=== PATIENT | male | born 1970 | race Caucasian/White ===

== ENCOUNTER 2017-05-27 09:05 | Day surgery (SDC) | payer OTHER ==
[~2017-05-27] VITALS: Ht 180.3 cm; Wt 73.8 kg
[2017-05-27] MEDS ORDERED: LINZESS (09:30)
[2017-05-27 09:32] VITALS: Ht 180.3 cm; Wt 73.8 kg
[2017-05-27] MEDS ORDERED: MIDAZOLAM 1 MG/ML 2 ML INJ ONE (10:09)
[2017-05-27] MEDS ORDERED: PROPOFOL 40 ML ONE (10:09)
--- NOTE | 2017-05-27 10:44 | OPPN ---
Date/Time of Note Date/Time of Note DATE: 05/27/17 TIME: 10:42 Operative Report Preoperative Diagnosis Change in bowel habit Postoperative Diagnosis Internal hemorrhoid Operation/Procedure Performed Colonoscopy Provider: JULIANNE FLAHERTY MD Anesthesia Type: MAC Estimated blood loss: none Transfusion Required: no Specimen: none Grafts/Implants: none Complications: no JULIANNE FLAHERTY MD May 27, 2017 10:44
[2017-05-27 10:45] VITALS: BP 95/54; PULSE 76
--- NOTE | 2017-05-27 11:34 | GILP ---
DATE OF PROCEDURE: 05/27/2017 PROCEDURE: Colonoscopy. PREOPERATIVE DIAGNOSIS: Change in the bowel habits. POSTOPERATIVE DIAGNOSES: 1. Colonoscopy all the way to the cecum. 2. Internal hemorrhoids. 3. No colon neoplasm was identified. INDICATION: Mr. Johann Chavez is a 47-year-old male patient who had sudden change in the bowel habits and with difficulty in having a bowel movement. The patient was scheduled for colonoscopy for further evaluation. The procedure and possible complications were well explained to the patient. He understood and consented to the procedure. DESCRIPTION OF PROCEDURE: Under influence of anesthesia, the colonoscope was carefully introduced in the rectum. Under direct vision, it was advanced all the way to the cecum. FINDINGS: The patient had internal hemorrhoids. No colon neoplasm was identified. He tolerated the procedure very well. There was no complication from the procedure. At the end of procedure, he was awake with stable vital signs and he was discharged home in care of his family. IMPRESSION: 1. Colonoscopy all the way to the cecum. 2. Internal hemorrhoids. 3. No colon neoplasm was identified. PLAN: 1. Linzess 290 mcg p.o. daily a.m. before breakfast. 2. Next screening colonoscopy in 10 years. Dictated By: MD ANAND Dong/kelly/joanne /Document#: [id number]
[2017-05-27] MEDS ORDERED: EPHEDrine SULFATE 50 MG/5 ML SYG ONE (14:57)
[2017-05-27] MEDS ORDERED: PHENYLephrine (100 MCG/ML) 5ML SYG ONE (14:58)
== END 2017-05-27 17:10 | disposition home or self-care (01) ==
LOC: GIL 09:05
PROVIDERS: ATTEND Internal Medicine Gastroenterology
DX: R19.4 Change in bowel habit (principal); K64.8 Other hemorrhoids; Z85.71 Personal history of Hodgkin lymphoma
CPT/HCPCS: 45378; J2250; J2370